=== PATIENT | male | born 1970 | race Caucasian/White ===

== ENCOUNTER → 2016-12-25 | Outpatient (CLI) | payer OTHER, MEDICAID | LOC: FIMAGING 11:43 | PROVIDERS: ATTEND Internal Medicine Nephrology | DX: N18.6 End stage renal disease (principal) ==

== ENCOUNTER 2017-03-17 09:25 | Emergency (ER) | payer OTHER, MEDICAID ==
[2017-03-17 09:33] VITALS: RESP 18; O2SAT 95
--- NOTE | 2017-03-17 09:57 | EDPHY ---
H & P Time Seen by Provider: 03/17/17 09:44 HPI/ROS: CHIEF COMPLAINT: Itching HISTORY OF PRESENT ILLNESS: 46-year-old male presents to the emergency department by private vehicle complaining of ongoing itching over last 3 months. The patient states that he saw his primary care provider at [facility] and has been treated for possible scabies including permethrin cream as well as oral ivermectin. The patient took the medication as prescribed and feels that it improved although it did come back. Patient feels is especially itchy in his back, face and eyebrows. He has not seen a ornament stapler. He has not taken any medication for the itching other than some type of topical " muscle rub". No fevers or chills. No recent travel. REVIEW OF SYSTEMS: Constitutional: No fever, no chills. Eyes: No double or blurry vision. ENT: No sore throat. Respiratory: No cough, no shortness of breath. Cardiac: No chest pain. Gastrointestinal: No abdominal pain, vomiting or diarrhea. Genitourinary: No dysuria. Musculoskeletal: No neck or back pain. Skin: As above Neurological: No headache. Past Medical/Surgical History: End-stage renal disease on dialysis, asthma Social History: Single and lives in [place] Smoking Status: Never smoked Physical Exam: General Appearance: Alert, no distress. Eyes: Pupils equal and round. Extraocular motions are all intact. ENT: Mouth: Mucous membranes moist. Respiratory: No wheezing, rhonchi, or rales, lungs are clear to auscultation. Cardiovascular: Regular rate and rhythm. Gastrointestinal: Abdomen is soft and nontender, no masses, no rebound or guarding, bowel sounds normal. Neurological: Alert and oriented x 3, cranial nerves II through XII grossly intact Skin: Numerous areas of excoriation, however no obvious rash appreciated. No vesicles. Patient has track saenz noted on the dorsal aspect of his left forearm from dialysis which she had yesterday. He has a fistula in his left arm. Warm and dry, no rashes. Musculoskeletal: Nontender to palpate along the cervical, thoracic or lumbar spine. Neck is supple. Extremities: Full range of motion and no peripheral edema. Psychiatric: Patient is oriented X 3, there is no agitation. Constitutional: Initial Vital Signs Temperature (C) 36.7 C 03/17/17 09:28 Heart Rate 82 12/19/17 09:28 Respiratory Rate 18 03/17/17 09:28 Blood Pressure 160/107 H 03/17/17 09:28 O2 Sat (%) 95 03/17/17 09:28 O2 Delivery Mode Room Air Allergies/Adverse Reactions: furosemide [From Lasix] Allergy (Verified 03/17/17 09:32) lisinopril Allergy (Verified 03/17/17 09:32) Home Medications: Medication Instructions Recorded Amlodipine Besylate 03/17/17 Lipitor 03/17/17 Metoprolol Tartrate 03/17/17 Permethrin 5% [Elimite 5%] 60 gr TOP DAILY #60 gm 03/17/17 Prilosec 03/17/17 Singulair 03/17/17 Medical Decision Making ED Course/Re-evaluation: 46 male presents to the emergency department with diffuse St. The patient is concerned that he has recurring scabies. He will be treated with topical permethrin cream. He was also encouraged to use Benadryl 50 mg every 6 hr. He was cautioned that this medication would cause him to be drowsy. He was also encouraged to use [id number] Pepcid for itching as well. He was given dermatology referral. He was instructed to return if he had any other change in symptoms or felt worse. Patient was comfortable with this plan. I do not see any evidence of cellulitis. I do not think antibiotics are indicated. Differential Diagnosis: Including not limited to contact dermatitis, scabies, cellulitis Departure - Departure Disposition: Home, Routine, Self-Care Clinical Impression: Itching Condition: Good Instructions: Scabies (ED) Additional Instructions: Topical permethrin cream as prescribed. Be sure to wash this medication often 8 -14 hr and then repeat again in 2 weeks. It is also very important to make sure that you wash lens in hot and dry them in a hot bobbin drier to prevent re- contamination. You should follow up with a ornament stapler. Benadryl 50 mg every 6 hr as needed for itching, cautioned this medication can make you drowsy. Pepcid 20 mg daily for itching. Referrals: [facility] [Other] - As per Instructions MARISOL VICK [Medical Doctor] - As per Instructions (Station Supervisor in [place]) Prescriptions: Permethrin 5% [Elimite 5%] 60 gr TOP DAILY #60 gm
[2017-03-17 10:06] VITALS: BP 158/99; PULSE 89; TEMP 98.4
== END 2017-03-17 10:06 | disposition home or self-care (01) ==
DX: L29.9 Pruritus, unspecified (principal); J45.909 Unspecified asthma, uncomplicated; N18.6 End stage renal disease; Z99.2 Dependence on renal dialysis

== ENCOUNTER 2017-06-10 08:53 | Day surgery (SDC) | payer OTHER, MEDICAID ==
[2017-06-10] MEDS ORDERED: ALTEPLASE 2 MG VIAL IVP PRN (09:03)
[2017-06-10] MEDS ORDERED: NALOXONE HCL 0.4 MG/ML INJ IVP PRN (09:03)
[2017-06-10] MEDS ORDERED: fentaNYL 100 MCG/2 ML INJ IVP PRN (09:03)
[2017-06-10] MEDS ORDERED: PROTAMINE SULFATE 50 MG/5 ML VIAL IVP PRN (09:03)
[2017-06-10] MEDS ORDERED: MIDAZOLAM 2 MG/2 ML VIAL IVP PRN (09:03)
[2017-06-10] MEDS ORDERED: GLUCAGON HCL 1 MG VIAL IVP PRN (09:03)
[2017-06-10] MEDS ORDERED: FLUMAZENIL 0.5 MG/5 ML MDV IVP PRN (09:03)
[2017-06-10] MEDS ORDERED: MEPERIDINE 25 MG/ML SYR IVP PRN (09:03)
[2017-06-10] MEDS ORDERED: HEPARIN 10,000 UNIT/10 ML MDV (1,000 UNIT/ML) IVP PRN (09:03)
[2017-06-10] MEDS ORDERED: NS 1,000 ML IV SCH (09:15)
[2017-06-10 10:12] LABS: INR 1.14 (0.83-1.16); PROTIME(PATIENT) 14.8 SEC (12.0-15.0)
[2017-06-10] MEDS ORDERED: MIDAZOLAM 2 MG/2 ML VIAL ONE (10:24)
[2017-06-10] MEDS ORDERED: FLUMAZENIL 0.5 MG/5 ML MDV IVP ONE (10:24)
[2017-06-10] MEDS ORDERED: fentaNYL 100 MCG/2 ML INJ ONE (10:24)
[2017-06-10] MEDS ORDERED: NALOXONE HCL 0.4 MG/ML INJ ONE (10:24)
--- NOTE | 2017-06-10 11:07 | PDGENHP ---
History & Physical History of Present Illness: 46 yo M w ESRD on HD via LUE radiocephalic fistula. Was working normally with more experienced HD techs. Newer techs having difficulty with access and low flows. Underwent fistulogram, angioplasty and embolization of competing venous collaterals in December 2016 at OSH. Pertinent Past, Social, Family History: Non-contributory Relevant Physical Exam: Pulsatile throughout with thrill proximally. Cardiorespiratory Assessment: RRR, normal resp effort.
--- NOTE | 2017-06-10 11:07 | PDPROPOC ---
Sedation Plan of Care Sedation Plan of Care: vital signs stable, mental status noted, patient educated of risks, benefits, alternatives, patient can tolerate sedation ASA Classification: ASA 3 Planned drugs: fentanyl, midazolam Mallampati Score: Class 2 Mallampati Reference Image: Patient passed 3-3-2 rule?: Yes
[2017-06-10] MEDS ORDERED: HEPARIN 10,000 UNIT/10 ML MDV (1,000 UNIT/ML) ONE (11:45)
[2017-06-10] MEDS ORDERED: IOPAMIDOL (ISOVUE-300) 100 ML BTL ONE ×2 (11:49→12:42)
[2017-06-10] MEDS ORDERED: NITROGLYCERIN/D5W 50 MG/250 ML BOTTLE IV ONE (12:43)
[2017-06-10] MEDS ORDERED: ONDANSETRON 4 MG/2 ML VIAL IVP PRN (12:54)
--- NOTE | 2017-06-10 12:54 | PDRADPN ---
Radiology Procedure Note Date of Procedure: 06/10/17 Radiologist: Holland Garcia Anesthesia: IV Sedation Pre-op Diagnosis: ESRD on HD Post-op Diagnosis: Same Indication: Difficult access, low flows Procedure: Fistulogram, central venogram, venoplasty Finding(s): See dictated report Inf/Abcess present in the surg proc area at time of surgery?: No EBL: Minimal Complications: No immediate
[2017-06-10 13:18] VITALS: BP 120/89
== END 2017-06-10 14:30 | disposition home or self-care (01) ==
LOC: FIMAGING 08:53
PROVIDERS: ATTEND Radiology Diagnostic Radiology
PROC: B34JZZZ Ultrasonography of Left Upper Extremity Arteries (ICD-10-PCS; principal; 2017-06-10 12:45)
PROC: B54NZZA Ultrasonography of Left Upper Extremity Veins, Guidance (ICD-10-PCS; principal; 2017-06-10 12:45)
PROC: 037B3ZZ Dilation of Right Radial Artery, Percutaneous Approach (ICD-10-PCS; principal; 2017-06-10 12:45)
DX: T82.858A Stenosis of other vascular prosthetic devices, implants and grafts, initial encounter (principal); N18.6 End stage renal disease; Z99.2 Dependence on renal dialysis
CPT/HCPCS: 36902; 99152; 99153; C1758; C1769; C1725; J1644; J2250; J2310; J3010; Q9967

== ENCOUNTER 2017-07-27 19:33 | Emergency (ER) | payer OTHER, MEDICAID ==
[2017-07-27] MEDS ORDERED: MECLIZINE HCL 25 MG TAB PO ONE (20:18)
[2017-07-27 20:22] LABS: PLATELET COUNT 219 10^3/uL (150-400)
--- NOTE | 2017-07-27 20:37 | EDPHY ---
H & P Stated Complaint: dizziness s/p dialysis Time Seen by Provider: 07/27/17 19:48 HPI/ROS: CHIEF COMPLAINT: Vertigo, presyncope HISTORY OF PRESENT ILLNESS: The patient presents to the ED with complaints of vertigo and presyncope which began after dialysis. The patient has a history of end-stage renal disease and has been on dialysis for approximately 3 months. The patient does have a history of hypertension. He denies any history of fall, headache, focal numbness or weakness. The patient reports that he had dialysis as scheduled today. The patient denies fever, cough or congestion. The patient denies vomiting or diarrhea. REVIEW OF SYSTEMS: A comprehensive 10 point review of systems is otherwise negative aside from elements mentioned in the history of present illness. Source: Patient - Personal History Current Tetanus Diphtheria and Acellular Pertussis (TDAP): Yes - Medical/Surgical History Hx Asthma: Yes Hx Chronic Respiratory Disease: No Hx Diabetes: No Hx Cardiac Disease: No Hx Renal Disease: Yes Hx Cirrhosis: No Hx Alcoholism: No Hx HIV/AIDS: No Hx Splenectomy or Spleen Trauma: No Other PMH: RENAL FAILURE, DIALYSIS X 3 MONTHS, ASTHMA. - Social History Smoking Status: Never smoked - Physical Exam Exam: General Appearance: Alert, no distress Eyes: Pupils equal and round no pallor or injection ENT, Mouth: Mucous membranes moist Respiratory: There are no retractions, lungs are clear to auscultation Cardiovascular: Regular rate and rhythm Gastrointestinal: Abdomen is soft and nontender, no masses, bowel sounds normal Neurological: A&O, normal motor function, normal sensory exam, normal cranial nerves, mild horizontal nystagmus Skin: Warm and dry, no rashes Musculoskeletal: Neck is supple nontender Extremities: symmetrical, full range of motion, dialysis fistula is noted in the left forearm Psychiatric: Patient is oriented X 3, there is no agitation Constitutional: Initial Vital Signs Temperature (C) 36.8 C 07/27/17 19:37 Heart Rate 75 07/27/17 19:37 Respiratory Rate 16 07/27/17 19:37 Blood Pressure 173/104 H 07/27/17 19:37 O2 Sat (%) 96 07/27/17 19:37 O2 Delivery Mode Room Air Allergies/Adverse Reactions: acetaminophen [From Percocet] Allergy (Verified 07/27/17 19:36) furosemide [From Lasix] Allergy (Verified 07/27/17 19:36) lisinopril Allergy (Verified 07/27/17 19:36) oxycodone [From Percocet] Allergy (Verified 07/27/17 19:36) Home Medications: Medication Instructions Recorded Amlodipine Besylate 2.5 mg PO BID 03/17/17 Metoprolol Tartrate 50 mg PO DAILY 03/17/17 Prilosec 40 mg PO DAILY 03/17/17 Singulair 10 mg PO DAILY 03/17/17 Cyclobenzaprine 10 mg PO 06/09/17 Metolazone 5 mg PO 06/09/17 Tums 500MG (*) 1 tab PO TID 06/09/17 Aspirin 325 mg PO PRN PRN 06/10/17 Proair Hfa 2 puffs IH PRN 06/10/17 Zofran 4 mg PO PRN 06/10/17 Medical Decision Making ED Course/Re-evaluation: The patient presents to the ED with symptoms of a positional vertigo that began today while at dialysis. The patient is noted to be neurologically intact aside from mild horizontal nystagmus. The patient is normothermic and in no acute distress. He has no clinical evidence of heart failure. The patient's metabolic panel demonstrates no evidence of hyperkalemia. The patient was given meclizine in the emergency department. Differential Diagnosis: Differential diagnosis considered includes benign positional vertigo, hyperkalemia, arrhythmia, hypotension, sepsis - Data Points Laboratory Results: Laboratory Results 07/27/17 20:02 07/27/17 20:02 07/27/17 07/27/17 20:02 20:02 WBC 7.42 10^3/uL 10^3/uL (3.80-9.50) RBC 3.66 10^6/uL L 10^6/uL (4.40-6.38) Hgb 11.7 g/dL L g/dL (13.7-17.5) Hct 33.5 % L % (40.0-51.0) MCV 91.5 fL fL (81.5-99.8) MCH 32.0 pg pg (27.9-34.1) MCHC 34.9 g/dL g/dL (32.4-36.7) RDW 12.5 % % (11.5-15.2) Plt Count 219 10^3/uL 10^3/uL (150-400) MPV 10.6 fL fL (8.7-11.7) Neut % (Auto) 65.5 % % (39.3-74.2) Lymph % (Auto) 21.0 % % (15.0-45.0) [place] % (Auto) 9.2 % % (4.5-13.0) Eos % (Auto) 3.2 % % (0.6-7.6) Baso % (Auto) 0.7 % % (0.3-1.7) Nucleat RBC Rel Count 0.0 % % (0.0-0.2) Absolute Neuts (auto) 4.86 10^3/uL 10^3/uL (1.70-6.50) Absolute Lymphs (auto) 1.56 10^3/uL 10^3/uL (1.00-3.00) Absolute Monos (auto) 0.68 10^3/uL 10^3/uL (0.30-0.80) Absolute Eos (auto) 0.24 10^3/uL 10^3/uL (0.03-0.40) Absolute Basos (auto) 0.05 10^3/uL 10^3/uL (0.02-0.10) Absolute Nucleated RBC 0.00 10^3/uL 10^3/uL (0-0.01) Immature Gran % 0.4 % % (0.0-1.1) Immature Gran # 0.03 10^3/uL 10^3/uL (0.00-0.10) Sodium 136 mEq/L mEq/L (135-145) Potassium 3.5 mEq/L mEq/L (3.5-5.2) Chloride 96 mEq/L L mEq/L (97-110) Carbon Dioxide 27 mEq/l mEq/l (22-31) Anion Gap 13 mEq/L mEq/L (8-16) BUN 24 mg/dL H mg/dL (7-23) Creatinine 4.0 mg/dL H mg/dL (0.7-1.3) Estimated GFR 16 Glucose 125 mg/dL H mg/dL (70-100) Calcium 8.3 mg/dL L mg/dL (8.5-10.4) Medications Given: Discontinued Medications Meclizine HCl (Meclizine Hcl) 25 mg PO EDNOW ONE Stop: 07/27/17 20:19 Last Admin: 07/27/17 20:35 Dose: 25 mg Departure - Departure Clinical Impression: Benign positional vertigo Condition: Good Instructions: Vertigo (ED) Additional Instructions: 1. Please take meclizine as prescribed for vertigo. 2. Zofran as needed for nausea. 3. Return to the ED for markedly worsening symptoms or other concerns. 4. Please follow-up with your primary care provider as scheduled. Referrals: [facility],. [Clinic] - As per Instructions
[2017-07-27 21:32] VITALS: BP 134/88
== END 2017-07-27 21:31 | disposition home or self-care (01) ==
DX: H81.10 Benign paroxysmal vertigo, unspecified ear (principal); J45.909 Unspecified asthma, uncomplicated; Z79.82 Long term (current) use of aspirin

== ENCOUNTER → 2017-10-08 | Outpatient (CLI) | payer OTHER, MEDICAID ==
[~2017-10-08] MED LIST: IOPAMIDOL (ISOVUE 370) 100 ML BTL IV ONE
== END ==
LOC: FIMAGING 13:44
DX: N18.6 End stage renal disease (principal); R93.1 Abnormal findings on diagnostic imaging of heart and coronary circulation
CPT/HCPCS: 74174; Q9967; 82565-PO

== ENCOUNTER → 2017-10-23 | Outpatient (CLI) | payer OTHER, MEDICAID | LOC: BHFA 08:30 | PROVIDERS: ATTEND Internal Medicine Cardiovascular Disease | DX: I10 Essential (primary) hypertension (principal) ==

== ENCOUNTER 2018-01-13 12:44 | Emergency (ER) | payer OTHER, MEDICAID ==
[2018-01-13] MEDS ORDERED: TRANEXAMIC ACID 1,000 MG/10 ML VIAL TP ONE (13:02)
--- NOTE | 2018-01-13 13:11 | EDPHY ---
H & P Smoking Status: Never smoked Time Seen by Provider: 01/13/18 13:00 HPI/ROS: CHIEF COMPLAINT: Tongue laceration HISTORY OF PRESENT ILLNESS: 47-year-old male with no exogenous anticoagulant use, history of end-stage renal disease, bit into an apple earlier today, accidentally bit his tongue, has a non through and through laceration which has continued to bleed. Bleeding has slowed since application of a black tea bag in the triage area. No dizziness. PHYSICAL EXAM (Prior to examination, patient consented to physical exam, hands were washed and my usual and customary physical exam procedures followed) 1) GENERAL: Well-developed, well-nourished, alert and oriented. Appears to be in no acute distress. 2) HEAD: Normocephalic 3) HEENT: sclera anicteric 4) LUNGS: Breathing comfortably. Anterior 1/3 of tongue 5 mm laceration non through and through with slow bleeding. (Hiro Nicolas) Constitutional: Initial Vital Signs Temperature (C) 36.7 C 01/13/18 12:47 Heart Rate 101 H 01/13/18 12:47 Respiratory Rate 16 01/13/18 12:47 Blood Pressure 140/102 H 01/13/18 12:47 O2 Sat (%) 97 01/13/18 12:47 O2 Delivery Mode Room Air Allergies/Adverse Reactions: acetaminophen [From Percocet] Allergy (Verified 07/27/17 19:36) furosemide [From Lasix] Allergy (Verified 07/27/17 19:36) lisinopril Allergy (Verified 07/27/17 19:36) oxycodone [From Percocet] Allergy (Verified 07/27/17 19:36) Home Medications: Medication Instructions Recorded Amlodipine Besylate 2.5 mg PO BID 03/17/17 Metoprolol Tartrate 50 mg PO DAILY 03/17/17 Prilosec 40 mg PO DAILY 03/17/17 Singulair 10 mg PO DAILY 03/17/17 Cyclobenzaprine 10 mg PO 06/09/17 Metolazone 5 mg PO 06/09/17 Tums 500MG (*) 1 tab PO TID 06/09/17 Aspirin 325 mg PO PRN PRN 06/10/17 Proair Hfa 2 puffs IH PRN 06/10/17 Zofran 4 mg PO PRN 06/10/17 Meclizine HCl [Meclizine HCl 25 mg 25 mg PO BID PRN #20 tab 07/27/17 (RX,OTC)] Ondansetron Odt [Zofran Odt] 4 mg PO Q4PRN PRN #20 tab 07/27/17 MDM/Departure - MDM Medications Given: Discontinued Medications Tranexamic Acid (Cyklokapron) 500 mg TP EDNOW ONE Stop: 01/13/18 13:03 Last Admin: 01/13/18 13:29 Dose: 500 mg ED Course/Re-evaluation: 1:09 p.m.: Lidocaine with epinephrine injected by myself at laceration/ puncture wound site and TXA soaked pledget applied at this time. Patient was initially scheduled for dialysis this morning and has rescheduled for this afternoon. I would like the patient to make his dialysis appointment later on this afternoon. 1:46 p.m.: Re-evaluation, TXA soaked pledget removed. The area is now hemostatic. Patient needs to leave to get to his dialysis appointment. He will be discharged. Recommended soft foods with limited to no mastication today. Given recommendations should he start to rebleed. He feels comfortable being discharged. I saw this patient independently based on established practice protocols. Care of patient under supervision of secondary supervising physician Dr Aranda . (Hiro Nicolas) I did not see this patient while he was in the emergency department. However his care is discussed with the PA while the patient is in the department. I agree with treatment plan and management (Raghu Aranda) - Depart Disposition: Home, Routine, Self-Care Clinical Impression: Laceration of tongue Condition: Good Instructions: Laceration (ED) Additional Instructions: Today, eat only soft foods such as Jell-O and pureed foods. Minimize the amount of talking you do. If the area bleeds again and is not stop with application of a black tea bag, return to the ER at that point Referrals: Mauro Leos PA [Primary Care Provider] - 1-2 days without fail
[2018-01-13 14:03] VITALS: BP 127/87
== END 2018-01-13 14:03 | disposition home or self-care (01) ==
DX: S01.512A Laceration without foreign body of oral cavity, initial encounter (principal); N18.6 End stage renal disease

== ENCOUNTER 2018-05-22 12:20 | Emergency (ER) | payer OTHER, MEDICAID ==
--- NOTE | 2018-05-22 12:33 | EDPHY ---
H & P Stated Complaint: dialysis pt need more fluid removed/cp /sob Time Seen by Provider: 05/22/18 12:32 - Personal History Current Tetanus Diphtheria and Acellular Pertussis (TDAP): Yes - Medical/Surgical History Hx Asthma: Yes Hx Chronic Respiratory Disease: No Hx Diabetes: No Hx Cardiac Disease: No Hx Renal Disease: Yes Hx Cirrhosis: No Hx Alcoholism: No Hx HIV/AIDS: No Hx Splenectomy or Spleen Trauma: No Other PMH: RENAL FAILURE- DIALYSIS, ESRD ASTHMA. - Social History Smoking Status: Never smoked Constitutional: Initial Vital Signs Temperature (C) 36.7 C 05/22/18 12:22 Heart Rate 86 05/22/18 12:22 Respiratory Rate 18 05/22/18 12:22 Blood Pressure 162/114 H 05/22/18 12:22 O2 Sat (%) 95 05/22/18 12:22 O2 Delivery Mode Room Air Allergies/Adverse Reactions: acetaminophen [From Percocet] Allergy (Verified 05/22/18 12:21) furosemide [From Lasix] Allergy (Verified 05/22/18 12:21) lisinopril Allergy (Verified 05/22/18 12:21) oxycodone [From Percocet] Allergy (Verified 05/22/18 12:21) Home Medications: Medication Instructions Recorded Amlodipine Besylate 2.5 mg PO BID 03/17/17 Metoprolol Tartrate 50 mg PO DAILY 03/17/17 Prilosec 40 mg PO DAILY 03/17/17 Singulair 10 mg PO DAILY 03/17/17 Cyclobenzaprine 10 mg PO 06/09/17 Metolazone 5 mg PO 06/09/17 Tums 500MG (*) 1 tab PO TID 06/09/17 Aspirin 325 mg PO PRN PRN 06/10/17 Proair Hfa 2 puffs IH PRN 06/10/17 Zofran 4 mg PO PRN 06/10/17 Meclizine HCl [Meclizine HCl 25 mg 25 mg PO BID PRN #20 tab 07/27/17 (RX,OTC)] Ondansetron Odt [Zofran Odt] 4 mg PO Q4PRN PRN #20 tab 07/27/17 Medical Decision Making - Diagnostics Imaging Results: Imaging Impressions Chest X-Ray 05/22/18 12:37 Impression: 1. Prominence of the pulmonary vasculature centrally along with peribronchial cuffing. Consider mild fluid overload versus possibility of bronchitis or viral process. Imaging: I viewed and interpreted images myself ED Course/Re-evaluation: CHIEF COMPLAINT: Wants dialysis HISTORY OF PRESENT ILLNESS: 47-year-old gentleman who receives dialysis in [place] 3 days a week. He missed Thursday's appointment due to some other doctors appointments. He was dialyzed on Thursday and then on Thursday but does not feel like enough fluid was removed. He thinks his about 5 kilos up. He is complaining of some shortness of breath and some pain in his chest when he lays flat which is indicative of fluid overload for him. He is taken care by Dr. David Barrett from the nephrology team. He denies any chest pressure or chest tightness when he is sitting up only when he lays flat he developed some mild chest tightness which is consistent with fluid overload. He is asking for oxygen despite the fact that his room air oxygen saturations are 95% he is in no distress. REVIEW OF SYSTEMS: A comprehensive 10 system review of systems is otherwise negative aside from elements mentioned in the history of present illness and medical decision making. PHYSICAL EXAM: HR, BP, O2 Sat, RR. Temp noted General Appearance: Alert, well hydrated, appropriate, and non-toxic appearing. Head: Atraumatic without scalp tenderness or obvious injury Eyes: Pupils equal, round, reactive to light and accommodation, EOMI, no trauma , no injection. Ears: Clear bilaterally, no perforation, normal landmarks Nose: Atraumatic, no rhinorrhea, clear. Throat: There is no erythema or exudates, no lesions, normal tonsils, mucus membranes moist. Neck: Supple, nontender, no lymphadenopathy. Respiratory: No retractions, no distress, no wheezes, and no accessory muscle use. Lungs are generally clear to auscultation bilaterally. I appreciate a a few rales but that is it Cardiovascular: Regular rate and rhythm, no murmurs, rubs, or gallops. Good capillary refill all extremities. Gastrointestinal: Abdomen is soft, nontender, non-distended, no masses, no rebound, no guarding, no peritoneal signs. Musculoskeletal: Normal active ROM of all extremities, atraumatic. Neurological: Alert, appropriate, and interactive. The patient has on-focal cranial nerves, motor, sensory, and cerebellar exam. Skin: No rashes, good turgor, no nodules on palpation. Past medical history: Dialysis dependent Past surgical history: Noncontributory except for fistula Family history: Noncontributory Social history: Single, does not abuse tobacco drugs or alcohol. Sock Examiner: Dr. Barrett. DIAGNOSTICS/PROCEDURES/CRITICAL CARE TIME: The 12 lead EKG was interpreted by myself. See hard copy and/or "tracemaster" electronic copy for interpretation. Sinus rhythm with left ventricular hypertrophy consistent with prior EKG Study: PA and Lateral Chest X-ray Indication: Shortness of breath with exertion Results: After viewing the images myself on the PACS system. My interpretation of the images is: minimal fluid overload. DIFFERENTIAL DIAGNOSIS: The differential diagnosis for the patient's shortness of breath included but was not limited to pneumonia, myocardial infarction, acute mountain sickness, high altitude pulmonary edema, congestive heart failure, and pulmonary embolus. MEDICAL DECISION MAKING: This patient missed 1 dialysis treatment. He is fairly anxiety ridden but does not appear to be in any distress whatsoever. I cannot molded goods spot picker any signs of significant fluid overload. This patient feels like he is needing 5 kilos removed. Additionally, his oxygen saturation is 95% on room air is no peripheral edema no rales. Laboratory studies are pending Chest x-ray shows minimal fluid overload. He is not hypoxemic. Creatinine is 6.5 , but potassium is normal. He has no significant peripheral edema on exam. He likely does not meet criteria for emergent dialysis. Will consult with his experimental electronics developer. 1310: Consulted with Dr. Joyner, nephrology. He also does not see evidence for emergent dialysis and says the outpatient dialysis unit is open today. 1315: Repeat BP is 143/87. - Data Points Laboratory Results: Laboratory Results 05/22/18 12:35 05/22/18 12:35 05/22/18 05/22/18 05/22/18 12:51 12:37 12:35 WBC RBC Hgb POC Hgb 11.6 gm/dL L gm/dL (13.7-17.5) Hct POC Hct 34 % L % (40-51) MCV MCH MCHC RDW Plt Count MPV Neut % (Auto) Lymph % (Auto) [place] % (Auto) Eos % (Auto) Baso % (Auto) Nucleat RBC Rel Count Absolute Neuts (auto) Absolute Lymphs (auto) Absolute Monos (auto) Absolute Eos (auto) Absolute Basos (auto) Absolute Nucleated RBC Immature Gran % Immature Gran # POC Sodium 140 mEq/L mEq/L (135-145) Sodium 138 mEq/L mEq/L (135-145) POC Potassium 3.9 mEq/L mEq/L (3.3-5.0) Potassium 4.1 mEq/L mEq/L (3.5-5.2) POC Chloride 102 mEq/L mEq/L (97-110) Chloride 100 mEq/L mEq/L (97-110) Carbon Dioxide 22 mEq/l mEq/l (22-31) POC Total CO2 25 mEq/L mEq/L (22-31) Anion Gap 16 mEq/L H mEq/L (6-14) POC BUN 47 mg/dL H mg/dL (7-23) BUN 55 mg/dL H mg/dL (7-23) Creatinine 6.1 mg/dL H mg/dL (0.7-1.3) POC Creatinine 6.5 mg/dL H mg/dL (0.7-1.3) Estimated GFR 10 Glucose 122 mg/dL H mg/dL (70-100) POC Glucose 125 mg/dL H mg/dL (70-100) Calcium 9.6 mg/dL mg/dL (8.5-10.4) POC Troponin I 0.01 ng/mL ng/mL (0.00-0.08) NT-Pro-B Natriuret Pep 1340 pg/mL H pg/mL (0-125) 05/22/18 12:35 WBC 9.26 10^3/uL 10^3/uL (3.80-9.50) RBC 3.50 10^6/uL L 10^6/uL (4.40-6.38) Hgb 11.5 g/dL L g/dL (13.7-17.5) POC Hgb Hct 32.5 % L % (40.0-51.0) POC Hct MCV 92.9 fL fL (81.5-99.8) MCH 32.9 pg pg (27.9-34.1) MCHC 35.4 g/dL g/dL (32.4-36.7) RDW 13.7 % % (11.5-15.2) Plt Count 267 10^3/uL 10^3/uL (150-400) MPV 9.9 fL fL (8.7-11.7) Neut % (Auto) 52.6 % % (39.3-74.2) Lymph % (Auto) 24.5 % % (15.0-45.0) [place] % (Auto) 14.8 % H % (4.5-13.0) Eos % (Auto) 4.8 % % (0.6-7.6) Baso % (Auto) 0.8 % % (0.3-1.7) Nucleat RBC Rel Count 0.0 % % (0.0-0.2) Absolute Neuts (auto) 4.88 10^3/uL 10^3/uL (1.70-6.50) Absolute Lymphs (auto) 2.27 10^3/uL 10^3/uL (1.00-3.00) Absolute Monos (auto) 1.37 10^3/uL H 10^3/uL (0.30-0.80) Absolute Eos (auto) 0.44 10^3/uL H 10^3/uL (0.03-0.40) Absolute Basos (auto) 0.07 10^3/uL 10^3/uL (0.02-0.10) Absolute Nucleated RBC 0.00 10^3/uL 10^3/uL (0-0.01) Immature Gran % 2.5 % H % (0.0-1.1) Immature Gran # 0.23 10^3/uL H 10^3/uL (0.00-0.10) POC Sodium Sodium POC Potassium Potassium POC Chloride Chloride Carbon Dioxide POC Total CO2 Anion Gap POC BUN BUN Creatinine POC Creatinine Estimated GFR Glucose POC Glucose Calcium POC Troponin I NT-Pro-B Natriuret Pep Point of Care Test Results: Chemistry 05/22/18 05/22/18 12:51 12:37 POC Sodium 140 mEq/L mEq/L (135-145) POC Potassium 3.9 mEq/L mEq/L (3.3-5.0) POC Chloride 102 mEq/L mEq/L (97-110) POC Total CO2 25 mEq/L mEq/L (22-31) POC BUN 47 mg/dL H mg/dL (7-23) POC Creatinine 6.5 mg/dL H mg/dL (0.7-1.3) POC Glucose 125 mg/dL H mg/dL (70-100) POC Troponin I 0.01 ng/mL ng/mL (0.00-0.08) ISTAT H&H 05/22/18 12:51 POC Hgb 11.6 gm/dL L gm/dL (13.7-17.5) POC Hct 34 % L % (40-51) Departure - Departure Disposition: Home, Routine, Self-Care Clinical Impression: Renal failure Qualifiers: Renal failure chronicity: chronic Chronic kidney disease stage: on chronic dialysis Qualified Code(s): N18.6 - End stage renal disease Condition: Good Instructions: Chronic Kidney Disease (ED) Additional Instructions: Go directly to the [facility] without fail. Return to the ED for worsening of condition. Referrals: Mauro Leos PA [Primary Care Provider] - As per Instructions David Barrett MD [Medical Doctor] - As per Instructions
[2018-05-22 12:44] LABS: PLATELET COUNT 267 10^3/uL (150-400)
[2018-05-22 13:14] VITALS: BP 143/87
== END 2018-05-22 13:20 | disposition home or self-care (01) ==
DX: N18.6 End stage renal disease (principal); R07.9 Chest pain, unspecified; R06.02 Shortness of breath; Z99.2 Dependence on renal dialysis
CPT/HCPCS: 82435-PO; 82565-PO; 82947-PO; 84132-PO; 84295-PO; 84484-ER; 84520-PO; 85014-ER

== ENCOUNTER 2018-06-13 01:30 | Emergency (ER) | payer OTHER, MEDICAID ==
--- NOTE | 2018-06-13 01:56 | EDPHY ---
H & P Stated Complaint: SORE THROAT, DIFF TO SWALLOW Time Seen by Provider: 06/13/18 01:40 HPI/ROS: HPI The patient presents with sore throat which has been present for the last 2 days but became much worse and awoke him from sleep tonight about 2 hr ago. He says he had severe pain in his throat, this made it difficult for him to breathe and required him to use his albuterol inhaler as well as take pain medication and Flexeril. Says for the last 2 days he has had sore throat, cough , occasional rhinorrhea. He has not had a fever, shortness of breath, chest pain. He attends dialysis Thursday and Thursday and has not missed any days. He received a flu vaccine this year. He thinks someone may have been sick at his dialysis clinic. REVIEW OF SYSTEMS 10 systems were reviewed and negative with the exception of the elements mentioned in the history of present illness. PMHx: End-stage renal disease on hemodialysis, asthma Soc Hx: Housed PHYSICAL General Appearance: Alert, no distress Eyes: Pupils equal and round no pallor or injection ENT, Mouth: Mucous membranes moist, posterior pharynx is erythematous without exudates or edema, cervical lymphadenopathy is present Respiratory: There are no retractions, lungs are clear to auscultation Cardiovascular: Regular rate and rhythm Gastrointestinal: Abdomen is soft and non-tender, no masses, bowel sounds normal Neurological: A&O, moves all extremities Skin: Warm and dry, no rashes, left forearm with fistula in place Musculoskeletal: Neck is supple non tender Extremities: symmetrical, full range of motion Psychiatric: Patient is oriented X 3, there is no agitation Source: Patient Exam Limitations: No limitations - Personal History Current Tetanus Diphtheria and Acellular Pertussis (TDAP): Yes - Medical/Surgical History Hx Asthma: Yes Hx Chronic Respiratory Disease: No Hx Diabetes: No Hx Cardiac Disease: No Hx Renal Disease: Yes Hx Cirrhosis: No Hx Alcoholism: No Hx HIV/AIDS: No Hx Splenectomy or Spleen Trauma: No Other PMH: RENAL FAILURE- DIALYSIS, ESRD ASTHMA, L FA FISTULA - Social History Smoking Status: Never smoked Constitutional: Initial Vital Signs Temperature (C) 36.8 C 06/13/18 01:34 Heart Rate 86 06/13/18 01:34 Respiratory Rate 16 06/13/18 01:34 Blood Pressure 145/102 H 06/13/18 01:34 O2 Sat (%) 97 06/13/18 01:34 O2 Delivery Mode Room Air Allergies/Adverse Reactions: acetaminophen [From Percocet] Allergy (Verified 05/22/18 12:21) furosemide [From Lasix] Allergy (Verified 05/22/18 12:21) lisinopril Allergy (Verified 05/22/18 12:21) oxycodone [From Percocet] Allergy (Verified 05/22/18 12:21) Home Medications: Medication Instructions Recorded Amlodipine Besylate 2.5 mg PO BID 03/17/17 Metoprolol Tartrate 50 mg PO DAILY 03/17/17 Prilosec 40 mg PO DAILY 03/17/17 Singulair 10 mg PO DAILY 03/17/17 Cyclobenzaprine 10 mg PO 06/09/17 Metolazone 5 mg PO 06/09/17 Tums 500MG (*) 1 tab PO TID 06/09/17 Aspirin 325 mg PO PRN PRN 06/10/17 Proair Hfa 2 puffs IH PRN 06/10/17 Zofran 4 mg PO PRN 06/10/17 Meclizine HCl [Meclizine HCl 25 mg 25 mg PO BID PRN #20 tab 07/27/17 (RX,OTC)] Ondansetron Odt [Zofran Odt] 4 mg PO Q4PRN PRN #20 tab 07/27/17 Medical Decision Making Differential Diagnosis: 47-year-old male with end-stage renal disease on hemodialysis presents from home with 2 days of progressive sore throat associated with rhinorrhea and cough. Here, vital signs are normal, he is generally well-appearing, posterior pharynx is slightly injected, there is no uvular edema. Plan for influenza testing, strep testing. Rapid strep and influenza are both negative. I suspect viral pharyngitis. I will treat with Decadron. I have discussed supportive measures with the patient. - Data Points Laboratory Results: 06/13/18 06/13/18 06/13/18 Unknown 02:00 01:35 Nasal Influenza A PCR NEGATIVE FOR FLU A (NEGATIVE) Nasal Influenza B PCR NEGATIVE FOR FLU B (NEGATIVE) RSV (PCR) NEGATIVE FOR RSV (NEGATIVE) Group A Strep Screen NEGATIVE (NEGATIVE) Group A Strep DNA Pending Medications Given: Discontinued Medications Dexamethasone (Decadron) 10 mg PO EDNOW ONE Stop: 06/13/18 03:44 Last Admin: 06/13/18 03:50 Dose: 10 mg Departure - Departure Disposition: Home, Routine, Self-Care Clinical Impression: Acute pharyngitis Qualifiers: Pharyngitis/tonsillitis etiology: unspecified etiology Qualified Code(s): J02.9 - Acute pharyngitis, unspecified Condition: Good Instructions: Pharyngitis (ED) Referrals: KASSIDY ABRAMS [Other] - As per Instructions
[2018-06-13 03:36] VITALS: BP 139/80
[2018-06-13] MEDS ORDERED: DEXAMETHASONE 4 MG TAB PO ONE (03:43)
== END 2018-06-13 04:05 | disposition home or self-care (01) ==
DX: J02.9 Acute pharyngitis, unspecified (principal); N18.6 End stage renal disease; Z99.2 Dependence on renal dialysis